=== PATIENT | female | born 1980 | race Caucasian/White ===

== ENCOUNTER 2017-09-19 09:48 | Emergency (ER) | payer MEDICARE, SELFPAY ==
[2017-09-19 09:50] VITALS: BP 125/83; PULSE 94; RESP 16; TEMP 36.6; O2SAT 99
--- NOTE | 2017-09-19 10:11 | US_ITS ---
STUDY: FIRST TRIMESTER OBSTETRICAL ULTRASOUND REASON FOR EXAM: Female, 36 years old. Vaginal bleeding. LMP: 06/27/2017. TECHNIQUE: Transvaginal PRIOR ULTRASOUND: None. FINDINGS: There is visualization of a single gestational sac in a normal intrauterine position. The mean sac diameter (MSD) measures 10 mm, indicating an estimated gestational age (EGA) of 5 weeks, 5 days. The gestational sac shape is somewhat irregular. There are heterogeneous areas around the gestational sac which could represent subchorionic bleed. There is a visualized yolk sac. The placenta is non-visualized. There is visualization of a live embryo. The crown-rump length (CRL) measures 2 mm, indicating an estimated gestational age (EGA) of 5 weeks, 6 days. There is no demonstrated cardiac activity . The estimated gestation age (EGA) by LMP is 12 weeks, 0 days. The estimated date of delivery (SUZANNE) by LMP is 04/03/2018. The estimated gestation age (EGA) by US is 5 weeks, 6 days. The estimated date of delivery (SUZANNE) by US is 05/16/2018. The uterus measures 8.8 x 6.7 x 4.8 cm. There is no demonstrated uterine fibroid. The cervix is closed. The right ovary measures 3.1 x 1.8 x 1.8 cm. There is no right ovarian cyst. There is no visualized right adnexal mass or complex lesion. The left ovary measures 3.4 x 1.9 x 1.9 cm. There is no left ovarian cyst. There is no visualized left adnexal mass or complex lesion. There is no fluid in the cul de sac. US/Transvaginal w/Preg US IMPRESSION: Intrauterine gestational sac with probable pole corresponding to approximately 5 weeks and 6 days. No cardiac activity however is seen. Findings could be due to demise. Follow-up exam in one week is recommended. Electronically Signed: Gomez Porras MD at 11:45 EDT Tel , Service support ,
--- NOTE | 2017-09-19 10:14 | ED.DCSUM_ITS ---
- ER Visit Summary Date of Service: 09/19/17 Chief Complaint: [] Vaginal spotting reportedly 12 weeks by date History of Present Illness: The patient is a 36 F [] history of HIV stable viral load 0 currently on all meds, currently on Suboxone for pain management, not IV drug abuse, lives in [place], visiting family, began having spotting after intercourse and had more heavy bleeding today and came in for evaluation minimal cramps reports she is 12 weeks by date has an appointment see her FINANCIAL WELLNESS COACH is in the [place] area September 23 no fever no cough no chest pain abdominal pain she is Ab2 she had 1 miscarriage and 1 distantly she has no history of ectopic or STD she states she otherwise feels fine Physical Examination: [] Chest unremarkable abdomen soft nontender production was unremarkable backs unremarkable extremities are normal skin is normal she deferred the pelvic exam she does agree to obtain labs UA and pelvic ultrasound Patient reports she has B+ blood type,, her CBC is unremarkable as is the UA, the ultrasound shows gestational sac with probable pole about 5 weeks 6 days no cardiac activity appreciated possible demise versus early gestation recommend repeat ultrasound 1 week see that report Just all the above with the patient the differential demise versus early etc. she understands all the above she is to be at bedrest no sex no heavy activity she will follow with her guest experience representative when she returns home as scheduled on Thursday the first and return for change in symptoms again she is feeling comfortable very stable in the department and will return for any symptoms and will obtain follow-up as above Test Results: [] Emergency Department Course and Treatment: [] Treatment Plan: [] Disposition: [] Home stable Impression: [] Vaginal bleeding, threatened AB, , 5 week gestational sac supple pole, no cardiac activity This note was generated with [employer] dictation software. It may contain incorrect words, spelling, and punctuation that were not noted in review of the chart prior to signing ED Disposition - Plan for ED Patient: Chief Complaint: Vag Bld, Preg Referrals: [facility] Doctor,Out of [Primary Care Provider] -
[2017-09-19 10:35] LABS: Bacteria 0 SEEN /hpf (None Seen); Red Blood Cells-Urine 0 SEEN /hpf (0-5)
[2017-09-19 10:37] LABS: Absolute Lymphocyte Count 0.89 X10^3/ul (0.83-4.51); Absolute Neutrophil Count 0.4 X10^3/uL (2.0-7.7); Basophil# 0.02 X10^3/uL; Eosinophil# 0.08 X10^3/uL; Eosinophils% 3.9 % (0-5); Hematocrit 39.4 % (37-47); Hemoglobin 13.6 g/dl (12.0-15.0); Lymphocyte # 0.89 X10^3/ul (4.0); Lymphocyte % 43.2 % (19-41); Mean Corp Hgb Conc 34.5 g/gl (32-36); Mean Corpuscular Hgb 28.7 pg (27.0-32.0); Mean Corpuscular Volume 83.1 fL (81-99); Mean Platelet Vol. 9.7 fl (6.2-12.0); Monocyte# 0.66 X10^3/uL; Neutrophil # 0.41 X10^3/uL (2.7-7.7); Neutrophil % 19.9 % (47-70); POSITIVE COUNT NO; POSITIVE DIFFERENTIAL NO; POSITIVE MORPHOLOGY NO; Platelet Count 140 K/mm3 (150-450); RBC Distribution Width CV 12.9 % (11.6-14.6); RBC Distribution Width SD 39.4 fl (35.1-43.9); Red Blood Count 4.74 M/mm3 (4.2-5.4); White Blood Count 2.1 K/mm3 (4.4-11.0)
[2017-09-19 10:40] LABS: Color, Urine Yellow (Yellow); Glucose, Dipstick Normal (Normal); Ketone-Dipstick 5 mg/dl (Negative); Leukocyte Esterase-Dipstick 25 /ul (Negative); Nitrite-Dipstick Negative (Negative); Occult Blood-Urine 250 /ul (Negative); Protein-Dipstick 30 mg/dl (Negative); Specific Gravity, Urine 1.025 (1.002-1.030); Urine Clarity Sl. Cloudy (Clear); Urine Urobilinogen 4 mg/dl (Normal)
[2017-09-19 10:45] LABS: Urine Bilirubin Dipstick 1 mg/dL (Negative)
[2017-09-19 10:47] LABS: Calcium Oxalate Crystals Ur RARE /hpf (<or=2+); Mucous, Urine 1+ /hpf (<or=2+); Squamous Epithelial Cells - UA 0-5 SEEN /hpf (5-10); White Blood Cells 0-5 SEEN /hpf (0-5)
[2017-09-19 11:01] LABS: Pregnancy, Serum, hCG Quali. POSITIVE Negative (0-9 Nonpreg)
[2017-09-19 11:40] LABS: hCG Titer Quant., Serum 12652 mIU/mL (<9 non-preg)
--- NOTE | 2017-09-19 11:53 | ED.DEP ---
ED Disposition - Plan for ED Patient: Chief Complaint: Vag Bld, Preg Instructions: ED Miscarriage Poss Referrals: [facility] Doctor,Out of [Primary Care Provider] -
--- NOTE | 2017-09-19 11:54 | DCINST.ED_ITS ---
ED Disposition - Plan for ED Patient: Chief Complaint: Vag Bld, Preg Instructions: ED Miscarriage Poss Referrals: [facility] Doctor,Out of [Primary Care Provider] -
[2017-09-19 12:14] VITALS: BP 105/75; PULSE 71; RESP 14; O2SAT 98
== END 2017-09-19 12:21 | disposition home or self-care (01) ==
LOC: ED 11:41
PROVIDERS: Emergency Provider Emergency Medicine
DX: O20.0 Threatened abortion (principal); O98.711 Human immunodeficiency virus [HIV] disease complicating pregnancy, first trimester; B20 Human immunodeficiency virus [HIV] disease; Z3A.01 Less than 8 weeks gestation of pregnancy; Z79.899 Other long term (current) drug therapy
CPT/HCPCS: 76817; 81001; 84702; 84703; 85025; 99282

== ENCOUNTER 2017-09-20 01:07 | Observation (INO) | payer MEDICARE, SELFPAY ==
[2017-09-20] VITALS (13 sets, daily range): BP systolic 80–124; BP diastolic 47–80; PULSE 43–103; RESP 12–20; TEMP 36.6–37.3; O2SAT 98–100; BMI 20.2; BMI 20.1
--- NOTE | 2017-09-20 01:26 | ED.VISSUMM ---
- ER Visit Summary Date of Service: 09/20/17 Chief Complaint: Vaginal bleeding History of Present Illness: The patient is a 36 F Ab2 with one being a miscarriage and one being an elective . Patient was seen in the ER last night for similar vaginal bleeding except now with clots and yesterday it was just spotting. By dates she is around 12 weeks . But an ultrasound yesterday was less than 6 weeks. Also no cardiac activity was seen at that time. Patient states her due date is 03/31/2018. All of her care has been in [facility] [address] where she lives. She is HIV positive. Currently on antiviral medications. Yesterday in the ER had a normal blood count. She states her blood type is B+. Today she had much heavier bleeding with large clots. Physical Examination: Well appearing female. Blood pressure 112/80. Heart rate of 96. She is afebrile. H EENT exam unremarkable. Neck nontender. Lungs clear to auscultation bilaterally. Heart regular rhythm no murmur. Abdomen soft and nontender. Normal bowel sounds no peritoneal signs. Pelvic exam done with a female nurse present in the room. External exam unremarkable other than blood. No rash no lesions. No discharge. On speculum exam the office is open. There is a very large bright red blood clot. I do not see any tissue. On bimanual exam she has no significant tenderness. She is moving all 4 extremities. There is no edema. Calves are nontender. Neurologically she is awake and alert with no focal motor deficits. Skin is unremarkable without rashes. Test Results: CBC showed a white count 2.5. Hemoglobin 13.6 which was the same as yesterday. Her quantitative hCG was 12,652 yesterday and 11,063 today. Blood type is B+. Emergency Department Course and Treatment: Labs will be obtained. Patient will be treated with a liter of normal saline. Orthostatic vital signs will be obtained prior to fluid resuscitation. Orthostatic blood pressures were unremarkable. Treatment Plan: Patient's had several episodes of passing large vaginal clots. Her blood pressure remains well clinically she looks well. I spoke to Dr. Amanda Mccall of [employer] CUTTER OPERATOR. Patient be admitted to the woman's currently on her service for further evaluation and to determine if she needs a D&C. Disposition: Admission Impression: Acute incomplete spontaneous miscarriage Vaginal bleeding First trimester This note was generated with [employer] dictation software. It may contain incorrect words, spelling, and punctuation that were not noted in review of the chart prior to signing ED Disposition - Plan for ED Patient: Chief Complaint: Vag Bld, Preg Referrals: [facility],Out of [Primary Care Provider] -
--- NOTE | 2017-09-20 01:30 | ED.DCSUM_ITS ---
- ER Visit Summary Date of Service: 09/20/17 Chief Complaint: Vaginal bleeding History of Present Illness: The patient is a 36 F Ab2 with one being a miscarriage and one being an elective . Patient was seen in the ER last night for similar vaginal bleeding except now with clots and yesterday it was just spotting. By dates she is around 12 weeks . But an ultrasound yesterday was less than 6 weeks. Also no cardiac activity was seen at that time. Patient states her due date is 03/31/2018. All of her care has been in [facility] where she lives. She is HIV positive. Currently on antiviral medications. Yesterday in the ER had a normal blood count. She states her blood type is B+. Today she had much heavier bleeding with large clots. Physical Examination: Well appearing female. Blood pressure 112/80. Heart rate of 96. She is afebrile. H EENT exam unremarkable. Neck nontender. Lungs clear to auscultation bilaterally. Heart regular rhythm no murmur. Abdomen soft and nontender. Normal bowel sounds no peritoneal signs. Pelvic exam done with a female nurse present in the room. External exam unremarkable other than blood. No rash no lesions. No discharge. On speculum exam the office is open. There is a very large bright red blood clot. I do not see any tissue. On bimanual exam she has no significant tenderness. She is moving all 4 extremities. There is no edema. Calves are nontender. Neurologically she is awake and alert with no focal motor deficits. Skin is unremarkable without rashes. Test Results: CBC showed a white count 2.5. Hemoglobin 13.6 which was the same as yesterday. Her quantitative hCG was 12,652 yesterday and 11,063 today. Blood type is B+. Emergency Department Course and Treatment: Labs will be obtained. Patient will be treated with a liter of normal saline. Orthostatic vital signs will be obtained prior to fluid resuscitation. Orthostatic blood pressures were unremarkable. Treatment Plan: Patient's had several episodes of passing large vaginal clots. Her blood pressure remains well clinically she looks well. I spoke to Dr. Amanda Mccall of STOCK CONTROL CLERK. Patient be admitted to the woman's currently on her service for further evaluation and to determine if she needs a D&C. Disposition: Admission Impression: Acute incomplete spontaneous miscarriage Vaginal bleeding First trimester This note was generated with [employer] dictation software. It may contain incorrect words, spelling, and punctuation that were not noted in review of the chart prior to signing ED Disposition - Plan for ED Patient: Chief Complaint: Vag Bld, Preg Referrals: [facility],Out of [Primary Care Provider] -
[2017-09-20 01:56] LABS: Hematocrit 39.1 % (37-47); Hemoglobin 13.6 g/dl (12.0-15.0); Mean Corp Hgb Conc 34.8 g/gl (32-36); Mean Corpuscular Hgb 28.9 pg (27.0-32.0); Mean Corpuscular Volume 83.2 fL (81-99); Mean Platelet Vol. 9.6 fl (6.2-12.0); Platelet Count 165 K/mm3 (150-450); RBC Distribution Width CV 12.9 % (11.6-14.6); White Blood Count 2.5 K/mm3 (4.4-11.0)
[2017-09-20 01:57] LABS: Scan Indicated on CBC? Y/N NO
[2017-09-20 02:25] LABS: hCG Titer Quant., Serum 11063 mIU/mL (<9 non-preg)
[2017-09-20] MEDS: 0.9% Normal Saline 1,000 ML 1000 ML IV (02:25)
[2017-09-20] MEDS: Ketorolac 30 MG/ML Syringe IV (03:37)
[2017-09-20] MEDS: 0.9% Normal Saline 1,000 ML 75 ML IV (05:19)
[2017-09-20] MEDS: miSOPROStol 200 MCG Tablet PO ×2 (05:19→13:13)
[2017-09-20] MEDS: BUPRENORPHINE HCL/NALOXONE HCL 1 EACH FILM SL (05:20)
[2017-09-20 07:51] LABS: Absolute Lymphocyte Count 0.78 X10^3/ul (0.83-4.51); Absolute Neutrophil Count 0.3 X10^3/uL (2.0-7.7); Basophil# 0.01 X10^3/uL; Basophil% 0.6 % (0-1); Eosinophil# 0.06 X10^3/uL; Eosinophils% 3.7 % (0-5); Hematocrit 31.2 % (37-47); Hemoglobin 10.6 g/dl (12.0-15.0); Lymphocyte # 0.78 X10^3/ul (4.0); Lymphocyte % 47.9 % (19-41); Mean Corpuscular Hgb 28.3 pg (27.0-32.0); Mean Corpuscular Volume 83.2 fL (81-99); Mean Platelet Vol. 9.1 fl (6.2-12.0); Monocyte# 0.53 X10^3/uL; Monocyte% 32.5 % (0-10); Neutrophil # 0.25 X10^3/uL (2.7-7.7); Neutrophil % 15.3 % (47-70); Platelet Count 124 K/mm3 (150-450); RBC Distribution Width CV 12.9 % (11.6-14.6); RBC Distribution Width SD 39.4 fl (35.1-43.9); Red Blood Count 3.75 M/mm3 (4.2-5.4); White Blood Count 1.6 K/mm3 (4.4-11.0)
[2017-09-20 07:52] LABS: Differential Indicated SCAN CRITERIA MET; POSITIVE COUNT NO; POSITIVE DIFFERENTIAL YES; POSITIVE MORPHOLOGY NO
--- NOTE | 2017-09-20 11:08 | PCM.HP.BLA ---
History and Physical Date of Admission: 09/20/17 36-year-old 5 para 2021 presents at approximately 12 weeks from her last menstrual period with a 5-6 weeks size sac is in agreement vaginal bleeding. She presented initially to the emergency room on 09/19/2017 with complaints of vaginal bleeding. She was having small amount of bleeding and there is an intrauterine gestational sac, she was stable and discharged home. She returned late in the evening after she started having heavy bleeding approximately 11 PM. It slowed down this morning. She is having some moderate cramping. She is from out of town and is visiting until later this week. She has not had any care yet for this but had her first appointment next week. Review of systems General: Denies any fevers or chills Cardiac: Denies any chest pain or shortness of breath Respiratory: No cough or shortness of breath Heme: No history of prolonged bleeding or easy bruising, she has been HIV positive since she was 8 years old. This is controlled and she is on therapy for this and is followed by her [id number] infectious disease specialist for this. LOOM OVERHAULER: No abnormal vaginal discharge, itching or burning. Past medical history: Significant for HIV positive, history of anal cancer, history of reconstruction of the lower extremity with rods, she is on Subutex for chronic pain management Past surgical history: She has had anal surgery as well as tonsillectomy with adenoidectomy, and orthopedic surgery on her leg Allergies: Morphine, penicillin, sulfa Obstetrical history: 2 vaginal deliveries, one elective termination and 1 spontaneous miscarriage Physical exam: See vitals General: Awake, alert, no acute distress Lungs: Normal air exchange Cardiac: Regular rate and rhythm Skin warm dry and intact Abdomen soft, nontender, no masses, no hernias LOOM OVERHAULER: Normal external genitalia, normal mons pubis with normal hair distribution pattern. Normal perineum. Normal labia majora and minora. Normal introitus with small amount of dark red blood present. Normal vagina with pink rugae and small amount of dark red blood in the vault. Cervix appears dilated, soft, nonfriable with small 1 cm clot at the os. Uterus is approximately 8 weeks size, minimally tender, mobile, no adnexal masses or tenderness Transvaginal ultrasound was performed in the room by me. There is a collapsed gestational sac and there is approximately 5 x 3 cm heterogeneous debris in endometrial cavity and lower uterine segment. Assessment and plan: 36-year-old female with approximately 6 weeks size incomplete spontaneous miscarriage. Risk benefits and alternatives to various options of been discussed with the patient, her questions were answered to her satisfaction she desires to proceed. She has had a slight decrease in her red blood cell count which is consistent with IV fluid hydration and mild acute blood loss anemia from the miscarriage. I discussed with her that at this point the majority of the gestational sac remains in the uterus. She received a dose of oral Cytotec last night. We reviewed medical versus surgical versus expectant management. At this point I would recommend surgical management due to her ongoing bleeding to prevent further blood loss and need for coming back to the emergency room. Patient agrees with this plan. Risks benefits and alternatives to surgery were reviewed with the patient, consent was signed. Her questions were answered to her satisfaction. She will receive doxycycline preoperatively and postoperatively.
[2017-09-20] MEDS: 0.9% NaCl Peripheral Flush Adult/Peds IV (11:09)
--- NOTE | 2017-09-20 11:12 | HP.PCM_ITS ---
History and Physical Date of Admission: 09/20/17 36-year-old 5 para 2021 presents at approximately 12 weeks from her last menstrual period with a 5-6 weeks size sac is in agreement vaginal bleeding. She presented initially to the emergency room on 09/19/2017 with complaints of vaginal bleeding. She was having small amount of bleeding and there is an intrauterine gestational sac, she was stable and discharged home. She returned late in the evening after she started having heavy bleeding approximately 11 PM. It slowed down this morning. She is having some moderate cramping. She is from out of town and is visiting until later this week. She has not had any care yet for this but had her first appointment next week. Review of systems General: Denies any fevers or chills Cardiac: Denies any chest pain or shortness of breath Respiratory: No cough or shortness of breath Heme: No history of prolonged bleeding or easy bruising, she has been HIV positive since she was 8 years old. This is controlled and she is on therapy for this and is followed by her [id number] infectious disease specialist for this. CUSTOMER EXPERIENCE SPECIALIST: No abnormal vaginal discharge, itching or burning. Past medical history: Significant for HIV positive, history of anal cancer, history of reconstruction of the lower extremity with rods, she is on Subutex for chronic pain management Past surgical history: She has had anal surgery as well as tonsillectomy with adenoidectomy, and orthopedic surgery on her leg Allergies: Morphine, penicillin, sulfa Obstetrical history: 2 vaginal deliveries, one elective termination and 1 spontaneous miscarriage Physical exam: See vitals General: Awake, alert, no acute distress Lungs: Normal air exchange Cardiac: Regular rate and rhythm Skin warm dry and intact Abdomen soft, nontender, no masses, no hernias CUSTOMER EXPERIENCE SPECIALIST: Normal external genitalia, normal mons pubis with normal hair distribution pattern. Normal perineum. Normal labia majora and minora. Normal introitus with small amount of dark red blood present. Normal vagina with pink rugae and small amount of dark red blood in the vault. Cervix appears dilated, soft, nonfriable with small 1 cm clot at the os. Uterus is approximately 8 weeks size , minimally tender, mobile, no adnexal masses or tenderness Transvaginal ultrasound was performed in the room by me. There is a collapsed gestational sac and there is approximately 5 x 3 cm heterogeneous debris in endometrial cavity and lower uterine segment. Assessment and plan: 36-year-old female with approximately 6 weeks size incomplete spontaneous miscarriage. Risk benefits and alternatives to various options of been discussed with the patient, her questions were answered to her satisfaction she desires to proceed. She has had a slight decrease in her red blood cell count which is consistent with IV fluid hydration and mild acute blood loss anemia from the miscarriage. I discussed with her that at this point the majority of the gestational sac remains in the uterus. She received a dose of oral Cytotec last night. We reviewed medical versus surgical versus expectant management. At this point I would recommend surgical management due to her ongoing bleeding to prevent further blood loss and need for coming back to the emergency room. Patient agrees with this plan. Risks benefits and alternatives to surgery were reviewed with the patient, consent was signed. Her questions were answered to her satisfaction. She will receive doxycycline preoperatively and postoperatively.
--- NOTE | 2017-09-20 11:42 | NURSING ---
DR HAJI CALLED AND DID NOT WANT THE ORAL ATB GIVEN NOW, AND HE WILL TALK TO DR GRIFFITHS.
[2017-09-20] MEDS: Doxycycline 100 MG CAPSULE PO (11:52)
--- NOTE | 2017-09-20 11:59 | PCM.DC.D&C ---
Discharge Diet: No Restrictions Discharge Activity: Return to Normal Activity, May Shower, May Take a Tub Bath - in 2 weeks. Allergies/Adverse Reactions: Allergies morphine Allergy (Verified 09/20/17 01:09) Shortness of breath Penicillins [PCN] Allergy (Verified 09/20/17 01:09) Shortness of breath Sulfa (Sulfonamide Antibiotics) Allergy (Verified 09/20/17 01:16) Shortness of breath sulfamethoxazole [From Bactrim] Allergy (Verified 09/20/17 01:09) Shortness of breath trimethoprim [From Bactrim] Allergy (Verified 09/20/17 01:09) Shortness of breath Medications to take at Discharge Buprenorphine HCl/Naloxone HCl [Suboxone 8 mg-2 mg Sl Film] 1 each SL TID 09/19/17 Emtricitabine/Tenofov Alafenam [Descovy 200-25 mg Tablet] 1 each PO QHS 09/19/17 Ondansetron HCl [Zofran] 4 mg PO PRN PRN 09/19/17 Preszista 800 mg PO QHS 09/19/17 Ritonavir [Norvir] 100 mg PO QHS 09/19/17 Ibuprofen [Motrin] 600 mg PO Q6H PRN #60 tab 09/20/17 The following prescriptions were given: Ibuprofen [Motrin] 600 mg PO Q6H PRN #60 tab PRN Reason: Pain Primary Care Physician: [facility] Doctor,Out of [Primary Care Provider] - Please follow up with your Primary Care Physician in: your home buttermaker as needed or as scheduled Test Results: Test results from this visit will be discussed in further detail at your follow-up appointment, if applicable. Please Follow Up With: Amanda Mccall MD - [phone] When: as needed
--- NOTE | 2017-09-20 12:00 | POC_PTH ---
PATIENT: CHAU BURTON LOC: MS3 U#:[id number] AGE/SX: 36/F ROOM: IL312 RE09/20/[address]: Dr. Amanda Mccall MD : 1980 BED: 1 DIS: 09/20/2017 SPEC #: [id number] RECD: 09/21/17 09:11 STATUS: ESTUARDO REBA #: [id number] NATHAN: 09/20/17 12:[address]: Amanda Mccall DEPT: SURGICAL PATHOLOGY RECD BY: Elissa Trent ENTERED: 09/21/17 09:43 SP TYPE: PROD CONC OTHR DR: Out of [facility] Doctor Tissues: Product of conception, NOS Procedures: Surgery Specimen Level IV HEADER OPERATION: Dilation and curettage, suction PRE-OP DIAGNOSIS: Missed TISSUE SUBMITTED: Products of conception MICROSCOPIC DIAGNOSIS Products of conception: [place]id[place], gestational endometrium and immature chorionic villi (products of conception). SJ:sal 09/22/17 MICROSCOPIC DESCRIPTION Slides are reviewed. GROSS DESCRIPTION Received in fixative is one container labeled with the patient's name and designated products of conception. The specimen consists of multiple fragments of pink hemorrhagic soft tissue that in aggregate measure 6 x 6 x 2 cm. tissue is not identified. Web Operations Administrator tissue is submitted in two cassettes. / SJ:sal 09/21/17 TC:5 CPT: 93999
--- NOTE | 2017-09-20 12:22 | OP.PCM_ITS ---
Report of Operation Date of Procedure: 09/20/17 Pre-Operative Diagnosis: incomplete spontaneous Post-Operative Diagnosis: same Surgery/Procedure Performed:: Suction dilation and curettage Description of Surgical Findings:: normal cervix and vagina center machine operator: None Type of Anesthesia:: MAC/Supplemental/Local Anesthesiologist: Luis Arredondo Special Medications: none Specimen's removed: products of conception Drains: none Estimated Blood Loss (mL): 50cc Fluids Replaced: LR Description of Procedure: The patient was taken to the operating room where she was prepped and draped in a dorsolithotomy position. A bimanual examination was done and confirmed the uterus to be 8 weeks size and retroverted. A weighted speculum was placed in the vagina and the anterior lip of the cervix was grasped with a single-tooth tenaculum. The cervix was dilated serially. A 9 mm suction curette was placed to the uterine fundus and the suction was created. Several passes were made to remove clots and products of conception. When minimal tissue was returning a gentle sharp curettage was then done of the uterine cavity. The uterine cry was appreciated and another gentle pass was made with the suction curette. At this point there is no active bleeding from the uterus and minimal blood and no further products of conception were removed. The instruments removed from the cervix and the cervix was observed and no active bleeding was identified. The tenaculum was removed off the cervix and hemostasis of the tenaculum site was assured. Made of the instruments removed from the vagina and the vaginal sweep was completed by me. Sponge and needle counts were correct. The patient was taken to the recovery room in stable condition. Findings: 8 week size uterus, normal cervix and vagina. Specimen: Products of conception Grafts/Implants Used: none - Complications none - Admit VTE Documentation VTE Present on Admission: No VTE Mechan Device Prophylaxis: SCD's VTE Pharm Prophylaxis ordered?: No Reason prophylaxis not ordered:: Procedure Not Indicated
== END 2017-09-20 15:30 | disposition home or self-care (01) ==
LOC: ED 01:42 → MS3 03:20
PROVIDERS: Admitting Provider Obstetrics & Gynecology; Emergency Provider Emergency Medicine; Visit Provider Obstetrics & Gynecology
PROC: (CPT 59812; principal; 2017-09-20 12:00)
DX: O03.4 Incomplete spontaneous abortion without complication (principal); Z86.718 Personal history of other venous thrombosis and embolism; Z3A.12 12 weeks gestation of pregnancy; O98.711 Human immunodeficiency virus [HIV] disease complicating pregnancy, first trimester; D62 Acute posthemorrhagic anemia; Z79.899 Other long term (current) drug therapy; Z85.048 Personal history of other malignant neoplasm of rectum, rectosigmoid junction, and anus; G89.29 Other chronic pain; F17.210 Nicotine dependence, cigarettes, uncomplicated; O02.1 Missed abortion
CPT/HCPCS: 01965; 59812; 84702; 85025; 85027; 86900; 86901; 88305; 96361; 96374; 97802; 99218; 99284; 99406; J7030; A4216; G0378